=== PATIENT | male | born 1995 | race Hispanic/Latino ===

== ENCOUNTER 2025-03-11 10:43 | Emergency (ER) | payer OTHER ==
[~2025-03-11] VITALS: Ht 165.1 cm; Wt 55.6 kg
[2025-03-11 11:44] LABS: BASOPHILS 0.3 % (0.2-1.2); EOSINOPHILS 0.2 % (0.8-7.0); LYMPHOCYTES 18.1 % (21.8-53.1); MCH 31.9 PG (25.7-32.2); MCHC 35.9 g/dL (32.3-36.5); MCV 88.9 fL (79.0-92.2); MONOCYTES 4.6 % (5.3-12.2); NEUTROPHILS 76.6 % (34.0-67.9); RBC 5.33 M/uL (4.63-6.08)
[2025-03-11 12:03] LABS: ALT (SGPT) 207.0 U/L (14-59); AST (SGOT) 68.0 U/L (15-37); GLOMERULAR FILTRATION RATE,EST 120.0 mL/min (>60); PROTEIN, TOTAL 7.4 g/dL (6.4-8.2); UREA NITROGEN 13.0 mg/dL (7-18)
[2025-03-11 13:00] VITALS: BP 107/66
== END 2025-03-11 13:00 | disposition home or self-care (01) ==
LOC: ED 10:43
PROVIDERS: Emergency Medicine
DX: B34.9 Viral infection, unspecified (principal)
CPT/HCPCS: 36415; 80053; 85025; 99284